=== PATIENT | male | born 1975 | race Caucasian/White ===

== ENCOUNTER 2020-05-27 14:59 | Emergency (ER) | payer MEDICARE, OTHER, SELFPAY ==
[2020-05-27 15:03] VITALS: BP 138/79; PULSE 83; RESP 18; TEMP 37.2; O2SAT 100
[2020-05-27] MEDS: methylPREDNISolone SOD SUCC 125 MG VIAL IM (16:02)
--- NOTE | 2020-05-27 16:11 | ED.ANIMALBIT ---
HPI - Animal Bite General Chief Complaint: Animal Bite <Rohit Mckeon PA-C - Last Filed: 05/27/20 16:18> Stated Complaint: INSECT BITE SWELLING <Rohit Mckeon PA-C - Last Filed: 05/27/20 16:18> Time Seen by Provider: 05/27/20 15:18 <Rohit Mckeon PA-C - Last Filed: 05/27/20 16:18> Source: patient <TRAVIS Gonzalez Last Filed: 05/27/20 16:18> Mode of arrival: ambulatory <TRAVIS Gonzalez Last Filed: 05/27/20 16:18> Limitations: no limitations <TRAVIS Gonzalez Last Filed: 05/27/20 16:18> History of Present Illness HPI narrative: Patient presents for evaluation of swelling right ankle after being stung by insect in the ankle after rolling over a ground hornets nest. Patient reports itching, burning, discomfort and swelling to the ankle. He has been applying ice, taking Benadryl and elevating but wanted to come to the emergency department to have it evaluated if the swelling persisted. Patient denies any anaphylaxis or any other accompanying symptoms. Patient states that he is up-to-date on his tetanus. <TRAVIS Gonzalez Last Filed: 05/27/20 16:18> Related Data Allergies/Adverse Reactions: Allergies Allergy/AdvReac Type Severity Reaction Status Date / Time shellfish derived Allergy Unknown Unknown Unverified 05/27/20 15:05 <TRAVIS Gonzalez Last Filed: 05/27/20 16:18> Review of Systems Review of Systems: Narrative: CONSTITUTIONAL: Denies fever, chills, or sweats. EYES: Denies visual changes, redness, or discharge. ENT: Denies rhinorrhea, congestion, sore throat, or otalgia. CARDIOVASCULAR: Denies chest pain, palpitations, or edema. RESPIRATORY: Denies cough or dyspnea. GASTROINTESTINAL: Denies abdominal pain, nausea, vomiting, or diarrhea. GENITOURINARY: Denies dysuria or hematuria. SKIN: Reports insect bite and swelling to right ankle MUSCULOSKELETAL: Reports right ankle pain and swelling denies back pain or myalgia. NEUROLOGIC: Denies headache, numbness, dizziness, or weakness. PSYCHIATRIC: Denies anxiety or depression. <Rohit Mckeon PA-C - Last Filed: 05/27/20 16:18> COUNTS INCLUDE 234 BEDS AT THE [facility] Social History Social History: Social History Gender identity (if verbalized by the patient): Male <Rohit Mckeon PA-C - Last Filed: 05/27/20 16:18> Exam Narrative: Exam Narrative: GENERAL: Well-appearing, well-nourished, and in no acute distress. HEAD: Normocephalic, atraumatic. EYES: PERRLA and EOMI. ENT: Nares clear, no rhinorrhea or epistaxis. Mucous membranes moist. Oropharynx without tonsillar hypertrophy exudate or other lesions. Bilateral TMs pearly cherry nonbulging NECK: Supple. No adenopathy or masses. No carotid bruits or JVD CHEST: Clear to auscultation. No respiratory distress. No wheezes rales or rhonchi HEART: Regular rate and rhythm. EXTREMITIES: Swelling noted circumferentially to right ankle with multiple bite/sting wounds noted to medial and lateral aspects. There are no vesicles or blisters noted. There are no foreign bodies noted. Range of motion slightly limited due to swelling. Ankle slightly warm. SKIN: Warm, dry, no rash. NEURO: No focal deficits. Alert and oriented x3. PSYCH: Normal mood and affect. <Rohit Mckeon PA-C - Last Filed: 05/27/20 16:18> Course Vital Signs Vital signs: Vital Signs Temperature 37.2 C 05/27/20 15:03 Pulse Rate 83 05/27/20 15:03 Respiratory Rate 18 05/27/20 15:03 Blood Pressure 138/79 05/27/20 15:03 Pulse Oximetry 100 05/27/20 15:03 Temperature 37.2 C 05/27/20 15:03 Pulse Rate 88 05/27/20 16:38 Respiratory Rate 17 05/27/20 16:38 Blood Pressure 126/86 05/27/20 16:38 Pulse Oximetry 100 05/27/20 16:38 <Rohit Mckeon PA-C - Last Filed: 05/27/20 16:18> Vital Signs Temperature 37.2 C 05/27/20 15:03 Pulse Rate 83 08/30/20 15:03 Respiratory Rate 18 05/27/20 15:03 Blood Pressure 138/79 05/27/20 15:03 Pulse Oximetry 100
[2020-05-27 16:38] VITALS: BP 126/86; PULSE 88; RESP 17; O2SAT 100
== END 2020-05-27 16:39 | disposition home or self-care (01) ==
PROVIDERS: Emergency Provider Emergency Medicine
DX: T63.451A Toxic effect of venom of hornets, accidental (unintentional), initial encounter (principal)
CPT/HCPCS: 96372; 99283; J2930

== ENCOUNTER 2021-05-19 11:13 | Emergency (ER) | payer MEDICARE, OTHER, SELFPAY ==
--- NOTE | ~2021-05-19 | CT_ITS ---
EXAMINATION: CT brain wo con DATE: 05/19/2021 13:58 INDICATION: Dizziness. Vertigo. TECHNIQUE: Computed tomography (CT) of the head was performed without intravenous contrast. The mA wa s adjusted according to patient size. Iterative reconstruction technique was employed. Exam dose: 60 5.33 mGy-cm total exam DLP. COMPARISON: None FINDINGS: No intracranial mass lesion or hemorrhage or cerebrovascular accident. No midline shift or mass effect effect. Normal cherry-white matter differentiation. Normal ventricular size. No subdural or epidural hematoma. No fracture or bone destruction of the cranial vault. Included paranasal sinuses and mastoid air cell s are normally developed and aerated. IMPRESSION: Negative examination Reviewed, dictated and finalized at [facility]. Reviewed, dictated and finalized at [facility]. IMPRESSION: Negative examination
[2021-05-19 11:14] VITALS: BP 135/73; PULSE 70; RESP 16; TEMP 36.8; O2SAT 98
[2021-05-19 11:40] LABS: Basophils Absolute Auto 0.1 K/mm3 (0.0-0.1); Basophils Percent Auto 0.7 % (0.2-1.2); Eosinophils Absolute Auto 0.1 K/mm3 (0-0.3); Eosinophils Percent Auto 0.9 % (0-4.4); Hematocrit 47.2 % (42.0-52.0); Hemoglobin 15.6 g/dL (14.0-18.0); Immature Granulocyte Absolute 0.03 K/mm3 (0.00-0.031); Immature Granulocyte Percent A 0.4 % (0-0.5); Lymphocytes Absolute Auto 2.17 K/mm3 (0.9-3.2); Lymphocytes Percent Auto 28.7 % (18.3-44.2); Mean Corpuscular HGB Conc 33.1 g/dl (32-36); Mean Corpuscular Hemoglobin 29.7 pg (26-34); Mean Corpuscular Volume 89.7 fl (80-100); Mean Platelet Volume 10.3 fl (7.4-10.4); Monocytes Absolute Auto 0.7 K/mm3 (0.1-0.6); Monocytes Percent Auto 9.5 % (2.6-8.5); Neutrophils Absolute Auto 4.5 K/mm3 (1.3-6.7); Neutrophils Percent Auto 59.8 % (45.5-73.1); Platelet Count Result 205 k/mm3 (150-375); Red Blood Count 5.26 M/mm3 (4.6-6.20); Red Cell Distribution Width 13.2 % (11.5-14.5); White Blood Count 7.6 K/mm3 (4.5-10.0)
[2021-05-19 11:53] LABS: Alanine Aminotransferase 42 U/L (4-50); Albumin Level 4.8 g/dL (3.5-5.1); Alkaline Phosphatase 72 U/L (38-126); Anion Gap 10 mmol/L (8-16); Aspartate Amino Transferase 33 U/L (17-59); Bilirubin,Total 0.4 mg/dL (0.2-1.3); Blood Urea Nitrogen 11 mg/dL (9-20); Calcium 9.5 mg/dL (8.4-10.2); Carbon Dioxide 24 mmol/L (22-30); Chloride 106 mmol/L (98-107); Estimated CRCL calculation 102 ml/min; Estimated Glomerular Filt Rate > 60; Glucose 98 mg/dL (65-110); Lipase 80 U/L (23-300); Potassium 4.4 mmol/L (3.4-5.0); Sodium 140 mmol/L (137-145)
[2021-05-19 12:32] LABS: Add Urine Microscopic? NO; Appearance Urine Clear (Clear); Bilirubin Urine Negative (Negative); Blood Urine Negative (Negative); Color Urine Colorless (Yellow); Glucose Urine UA Negative (Negative); Ketones Urine Negative (Negative); Leukocyte Esterase Ur Negative LEU/UL (Negative); Nitrate Urine Negative (Negative); Protein Urine Negative (Negative); Urobilinogen Urine Negative mg/dL (<2.0)
--- NOTE | 2021-05-19 12:33 | ED.DIZZY ---
HPI - Dizziness General Chief Complaint: Dizziness Stated Complaint: dizzy/nausea Time Seen by Provider: 05/19/21 12:14 History of Present Illness HPI Narrative: 45 yo male w/ h/o PTSD, TBI presents to the ED c/o dizziness. He has very nonspecific complaints. He says that he has not felt right for weeks. He frequently gets dizzy. He describes this as both light headedness and spatial disorientation. Sometimes trigger by head movement. He feels like when he turns his head his eyes are delayed. He reports losing focus, but it is not clear if he means that his vision is burry or if he is talking about mental focus. He also says that he has started sweating more. Sometimes he vomits when he drinks without using a straw. He has some sinus pressure and tinnitus, but says both of these are chronic. Related Data Allergies Allergy/AdvReac Type Severity Reaction Status Date / Time shellfish derived Allergy Unknown Unknown Verified 05/19/21 11:14 Review of Systems Review of Systems: All systems reviewed & are unremarkable except as noted in HPI and below Constitutional: Constitutional: Reports chills, Reports fatigue, Denies fever(s) and Denies weakness Eyes: Eyes: Reports as per HPI ENT: Reports vertigo, Reports dizziness and Denies sore throat Cardiovascular: Cardiovascular: Denies chest pain Respiratory: Respiratory: Denies dyspnea Gastrointestinal: Gastrointestinal: Reports nausea Genitourinary: Genitourinary: Reports no additional male genitourinary complaints Musculoskeletal: Musculoskeletal: Denies back pain Neurologic: Denies confusion, Reports dizziness, Denies syncope and Denies focal weakness [facility] Past Medical History Medical History (Updated 05/19/21 @ 14:34 by Jonathan Whitten MD) PTSD (post-traumatic stress disorder) TBI (traumatic brain injury) Social History Social History Gender identity (if verbalized by the patient): Male Exam Const: General: healthy appearing, no acute distress and alert Orientation/consciousness: patient oriented x3 HENMT: Head: normal to inspection Eyes: Conjunctivae: conjunctivae normal Pupils: Equal, round and reactive pupils present EOM: EOMs intact bilaterally Neck: Neck: normal visual inspection Resp: Effort & Inspection: normal respiratory effort Auscultation: clear to auscultation bilaterally, no rales, no rhonchi and no wheezes Cardio: Jugular venous distension: no JVD Rate: regular rate Rhythm: regular rhythm Heart sounds: no murmurs GI: Inspection: non-distended GI Palp: Yes Soft to palpation and No Tenderness to palpation present (GI) Skin: General skin exam: normal color Neuro: General: patient oriented x3, moves all extremities, no focal motor deficits and CN's II-XI intact bilaterally Cranial nerves: Yes Nystagmus not present Speech: normal speech Extrem: General: normal to inspection and no edema Psych: Appearance: well kempt Affect: normal affect Course Course Emergency Course: Nonspecific complaints. Could be vertigo, but this is not evident on exam. Vital Signs Vital signs: Vital Signs Temperature 36.8 C 05/19/21 11:14 Pulse Rate 70 05/19/21 11:14 Respiratory Rate 16 05/19/21 11:14 Blood Pressure 135/73 05/19/21 11:14 Pulse Oximetry 98 05/19/21 11:14 Temperature 36.8 C 05/19/21 11:14 Pulse Rate 70 05/19/21 15:10 Respiratory Rate 16 05/19/21 15:10 Blood Pressure 140/70 05/19/21 15:10 Pulse Oximetry 98 05/19/21 15:10 MDM - Dizziness MDM Narrative Medical decision making narrative: Labs reassuring. Mild improvement after meclizine. Requesting head CT. Says 2 family members had vertigo and were later found to have brain masses. Medical Records Attestation: I reviewed the patient's medical records. Lab Data Attestation: I reviewed the patient's lab results. Result diagrams: 05/19/21 11:32 05/19/21 11:32 Labs: Lab Results 05/19/21 05/19/21 05/19/21 Hilda
[2021-05-19 12:35] LABS: Specific Grav Ur 1.003 (1.001-1.035)
[2021-05-19] MEDS: SODIUM CHLORIDE 0.9% IV 1,000 ML 999 ML IV CONT (13:05)
[2021-05-19] MEDS: MECLIZINE HCL 25 MG TABLET PO (13:13)
[2021-05-19 14:00] VITALS: BP 123/80; PULSE 60; RESP 16; O2SAT 100
[2021-05-19 15:10] VITALS: BP 140/70; PULSE 70; RESP 16; O2SAT 98
== END 2021-05-19 15:10 | disposition home or self-care (01) ==
PROVIDERS: General Practice; Emergency Provider Emergency Medicine
DX: R42 Dizziness and giddiness (principal)
CPT/HCPCS: 36415; 70450; 80053; 81003; 83690; 85025; 96360; 99284; A9270; J7030

== ENCOUNTER 2022-06-26 06:25 | Emergency (ER) | payer MEDICARE, OTHER, SELFPAY ==
[2022-06-26 06:29] VITALS: BP 161/85; PULSE 75; RESP 20; TEMP 36.3; O2SAT 98
--- NOTE | 2022-06-26 06:47 | ED.GENADULT ---
HPI - General Adult General Chief complaint: Unspecified Stated complaint: THROAT/EAR PAIN Time Seen by Provider: 06/26/22 06:28 History of Present Illness HPI narrative: 46-year-old male presented the emergency department for evaluation of right ear pain, nasal congestion and sore throat. Patient states symptoms started a few days ago and have been worsening. Patient did do a home COVID test that was negative. Patient has been doing warm salt water gargles to help with the sore throat. Patient states he has had some cough and some low-grade fever. Patient denies any medication allergies Related Data Allergies Allergy/AdvReac Type Severity Reaction Status Date / Time shellfish derived Allergy Unknown Unknown Verified 06/26/22 06:33 Review of Systems Review of Systems: CONSTITUTIONAL: Denies fever, chills, or sweats. EYES: Denies visual changes, redness, or discharge. ENT: See HPI CARDIOVASCULAR: See HPI RESPIRATORY: See HPI GASTROINTESTINAL: Denies abdominal pain, nausea, vomiting, or diarrhea. GENITOURINARY: Denies dysuria or hematuria. SKIN: Denies rash or itching. MUSCULOSKELETAL: Denies back pain, joint pain, or myalgia. NEUROLOGIC: Denies headache, numbness, or weakness. [facility] Past Medical History Medical History (Updated 06/26/22 @ 06:47 by Haroon Lazar MD) PTSD (post-traumatic stress disorder) TBI (traumatic brain injury) Social History Social History Gender identity (if verbalized by the patient): Male Exam Narrative: APPEARANCE: Well appearing, no pain, no distress, well-nourished. HEAD: normocephalic, atraumatic. EYES: PERRLA/EOMI, conjunctivae clear. NOSE: Normal no drainage EARS: Right TM erythema THROAT: Pharynx erythema NECK: Supple. No adenopathy, no masses. RESPIRATORY: Airway patent, respirations nonlabored. Clear to auscultation bilaterally, no rales, rhonchi, wheezing. CARDIOVASCULAR: Regular rate and rhythm without murmurs rubs or gallops. ABDOMINAL: Soft, nontender, nondistended, normal bowel sounds MUSCULOSKELETAL: Moves all extremities. Strength/ROM intact, No edema, No calf tenderness. NEURO: Alert. Cranial nerves II through XII intact. Grossly intact SKIN: Warm, dry. Normal Color Course Course Emergency Course: Patient had a negative COVID test at home. Patient was started on Augmentin in the ED and discharged on Augmentin. All questions and concerns were addressed. Patient was comfortable with the plan for discharge and close follow-up. Vital Signs Vital signs: Vital Signs Temperature 97.4 F L 06/26/22 06:29 Pulse Rate 75 06/26/22 06:29 Respiratory Rate 20 06/26/22 06:29 Blood Pressure 161/85 H 06/26/22 06:29 Pulse Oximetry 98 06/26/22 06:29 Oxygen Delivery Room Air 06/26/22 06:29 Temperature 97.4 F L 06/26/22 06:29 Pulse Rate 75 06/26/22 06:29 Respiratory Rate 20 06/26/22 06:29 Blood Pressure 161/85 H 06/26/22 06:29 Pulse Oximetry 98 06/26/22 06:29 Oxygen Delivery Room Air 06/26/22 06:29 Medical Decision Making Vital Signs Vital Signs: Vital Signs Temperature 97.4 F L 06/26/22 06:29 Pulse Rate 75 06/26/22 06:29 Respiratory Rate 20 06/26/22 06:29 Blood Pressure 161/85 H 06/26/22 06:29 Pulse Oximetry 98 06/26/22 06:29 Oxygen Delivery Room Air 06/26/22 06:29 Temperature 97.4 F L 06/26/22 06:29 Pulse Rate 75 06/26/22 06:29 Respiratory Rate 20 06/26/22 06:29 Blood Pressure 161/85 H 06/26/22 06:29 Pulse Oximetry 98 06/26/22 06:29 Oxygen Delivery Room Air 06/26/22 06:29 Discharge Plan Discharge Clinical Impression: Acute sore throat, Acute right otitis media Patient Disposition: Home, Self-Care Condition: Stable Instructions: Antibiotic Form, Pharyngitis (ED), Ear Infection (ED) Additional Instructions: Decongestant as needed to help with postnasal drip. Tylenol and ibuprofen for pain control. Antibiotic as directed until completed for your ear infection.
[2022-06-26] MEDS: AMOXICILLIN/CLAVULANATE K 875-125 MG TAB 1 TABLET PO (06:53)
== END 2022-06-26 06:59 | disposition home or self-care (01) ==
PROVIDERS: Emergency Provider Emergency Medicine
DX: J02.9 Acute pharyngitis, unspecified (principal); H66.91 Otitis media, unspecified, right ear; Z87.820 Personal history of traumatic brain injury
CPT/HCPCS: 99283; A9270

== ENCOUNTER 2022-07-08 13:42 | Emergency (ER) | payer MEDICARE, OTHER, SELFPAY ==
--- NOTE | ~2022-07-08 | XR_ITS ---
EXAMINATION: XR knee RT min 4V DATE: 07/08/2022 14:01 INDICATION: Right knee pain TECHNIQUE: Four views of the right knee were obtained. COMPARISON: 01/24/2013 FINDINGS: Alignment is normal. No fracture or osteochondral lesion. Joint spaces are normal with no e rosions. No joint effusion/synovitis. There is medial soft tissue swelling of the knee. IMPRESSION: 1. Medial soft tissue swelling of the knee without acute osseous abnormality. Reviewed, dictated and finalized at [facility].
[2022-07-08 13:44] VITALS: BP 145/86; PULSE 89; RESP 17; TEMP 36.5; O2SAT 98
--- NOTE | 2022-07-08 14:27 | ED.LOWEXIN ---
HPI - Extremity Injury (Lower) General Chief Complaint: Extremity Injury, Lower <TRAVIS Corado Last Filed: 07/08/22 18:46> Stated Complaint: right knee pain <TRAVIS Corado Last Filed: 07/08/22 18:46> Time Seen by Provider: 07/08/22 14:03 <TRAVIS Corado Last Filed: 07/08/22 18:46> Source: patient <TRAVIS Corado Last Filed: 07/08/22 18:46> Mode of arrival: ambulatory <TRAVIS Corado Last Filed: 07/08/22 18:46> Limitations: no limitations <TRAVIS Corado Last Filed: 07/08/22 18:46> History of Present Illness HPI Narrative: Patient is a 46-year-old male who presents the ED with report of right knee pain. Patient reports he was jumping at a trampoline park today when his knee buckled underneath of him and turned outward. He states he heard a pop. He has since had pain in his right knee. States the pain feels similar to when he tore his ACL 8 years ago. He has been able to ambulate, but has pain with this. Denies any other injuries, head injury, LOC, numbness, tingling, weakness. <TRAVIS Corado Last Filed: 07/08/22 18:46> Related Data Allergies/Adverse Reactions: Allergies Allergy/AdvReac Type Severity Reaction Status Date / Time shellfish derived Allergy Unknown Unknown Verified 07/08/22 13:47 <TRAVIS Corado Last Filed: 07/08/22 18:46> Review of Systems Review of Systems: CONSTITUTIONAL: Denies fever, chills, or sweats. MUSCULOSKELETAL: Reports right knee pain. NEUROLOGIC: Denies HI, LOC, tingling, numbness, or weakness. <TRAVIS Corado Last Filed: 07/08/22 18:46> All systems reviewed & are unremarkable except as noted in HPI and below <Radha Painter PA-C - Last Filed: 07/08/22 18:46> [facility] [place] Past Medical History Medical History: Medical History (Updated 07/09/22 @ 00:01 by Kushal Barone) History of tear of ACL (anterior cruciate ligament) PTSD (post-traumatic stress disorder) TBI (traumatic brain injury) <Radha Painter PA-C - Last Filed: 07/08/22 18:46> Surgical History Surgical History: Surgical History (Updated 07/08/22 @ 14:28 by Radha Painter PA-C) No pertinent past surgical history <Radha Painter PA-C - Last Filed: 07/08/22 18:46> Social History Social History: Social History (Updated 07/08/22 @ 14:28 by Radha Painter PA-C) Smoking status: Never smoker Gender identity (if verbalized by the patient): Male <Radha Painter PA-C - Last Filed: 07/08/22 18:46> Exam Narrative: GENERAL: Well appearing, well-nourished, non-toxic, in no acute distress. HEAD: Normocephalic, atraumatic. NECK: Supple. No adenopathy, no masses. RESPIRATORY: Airway patent, respirations nonlabored. CARDIOVASCULAR: Regular rate and rhythm without murmurs, rubs, or gallops. Pedal pulses 2+ and equal bilaterally. MUSCULOSKELETAL: Moves all extremities. Limited flexion range of motion of right knee due to discomfort. No edema. No calf tenderness. TTP over medial anterior knee. No significant pain with ballottement of patella. No palpable joint effusion. Positive anterior drawer test. Discomfort in medial knee with valgus stress testing. SKIN: Warm, dry, normal color. No rashes. NEURO: A&O X3. Speech clear. Cranial nerves II-XII grossly intact. Steady gait. No ataxic movements. PSYCHIATRIC: Appropriate mood and affect. Normal interaction. <Radha Painter PA-C - Last Filed: 07/08/22 18:46> Course [facility]/PA Physician Supervision For this patient encounter, I reviewed the GLOVE SEWER or PA documentation, treatment plan, and medical decision making. I was available for consultation as needed. <Fanny Barajas MD - Last Filed: 07/11/22 21:55> Vital Signs Vital signs: Vital Signs Temperature 97.7 F 07/08/22 13:44 Pulse Rate 89 07/08/22 13:44 Respiratory Rate 17 06/28
[2022-07-08] MEDS: KETOROLAC (*BKC) 60 MG/2 ML VIAL IM (14:46)
== END 2022-07-08 14:51 | disposition home or self-care (01) ==
PROVIDERS: Emergency Provider Emergency Medicine
DX: M23.91 Unspecified internal derangement of right knee (principal); S89.91XA Unspecified injury of right lower leg, initial encounter; Z87.820 Personal history of traumatic brain injury; Y93.44 Activity, trampolining; X50.9XXA Other and unspecified overexertion or strenuous movements or postures, initial encounter
CPT/HCPCS: 73564; 96372; 99283; J1885